=== PATIENT | male | born 2000 | race Caucasian/White ===

== ENCOUNTER 2022-09-16 10:17 | Emergency (ER) | payer OTHER ==
[~2022-09-16] VITALS: Ht 175.3 cm; Wt 72.7 kg
[2022-09-16 10:32] VITALS: TEMP 98.1
[2022-09-16] MEDS ORDERED: BENZ-227 PO (11:35)
[2022-09-16 11:37] VITALS: BP 115/70; PULSE 86; RESP 18
== END 2022-09-16 11:43 | disposition home or self-care (01) ==
LOC: EMS 10:17
DX: J40 Bronchitis, not specified as acute or chronic (principal); F12.90 Cannabis use, unspecified, uncomplicated
CPT/HCPCS: 71045; 99283; 99406